=== PATIENT | male | born 1970 | race Two or more races ===

== ENCOUNTER 2020-07-23 05:57 | Day surgery (SDC) | payer OTHER ==
[~2020-07-23 05:57] MED LIST: COZAAR100 MG PO; FENOFIBRATE PO; FORTAMET500 MG PO; GLIPIZIDE XL10 MG PO
== END 2020-07-23 16:20 | disposition home or self-care (01) ==
LOC: CIR.AMB 05:57
PROVIDERS: ATTEND Urology
DX: N47.1 Phimosis (principal); Z20.828 Contact with and (suspected) exposure to other viral communicable diseases